=== PATIENT | female | born 1980 | race Caucasian/White ===

== ENCOUNTER → 2021-09-06 | Outpatient (CLI) | payer OTHER ==
[~2021-09-06] MED LIST: ANUS2.5C2 TOP; COLA50CA3 PO; GLYB2.5T PO; GLYBPOW XX; IBUP80TA PO; MAPA500T17 PO
== END ==
LOC: M WHC 15:23
PROVIDERS: ATTEND Nurse Practitioner Primary Care
DX: Z12.31 Encounter for screening mammogram for malignant neoplasm of breast (principal)

== ENCOUNTER 2022-05-08 13:08 | Observation (INO) | payer OTHER ==
[~2022-05-08] VITALS: Ht 170.2 cm; Wt 91.1 kg
[~2022-05-08 13:08] MED LIST changes: +CYMB1CAP5 PO; +HEPARIN SOD (PORCINE) 5000UNITS/ML 1ML VIAL/SYRINGE SQ ONE; +PHEN37.58 PO; +TIZA1TAB12 PO; +TOPA100T12 PO; +ceFAZolin SOD 2 GM in IV 1 EA IV ONE
[2022-05-08] MEDS ORDERED: IRON65TA2 PO (13:43)
[2022-05-08] MEDS ORDERED: VITA500C24 PO (13:43)
[2022-05-08] MEDS ORDERED: propofoL 200 MG/20 ML VIAL As Ordered ONE (13:56)
[2022-05-08] MEDS ORDERED: HYDROmorphone HCL 2MG/ML 1ML VIAL As Ordered ONE (13:56)
[2022-05-08] MEDS ORDERED: ROCURONIUM BROMIDE 50MG/5ML VIAL As Ordered ONE ×2 (13:56→17:12)
[2022-05-08] MEDS ORDERED: fentaNYL 100 MCG/2 ML INJECTION As Ordered ONE (13:56)
[2022-05-08] MEDS ORDERED: MIDAZOLAM INJ 2MG/2ML VIAL As Ordered ONE (13:56)
[2022-05-08] MEDS ORDERED: LIDOCAINE 2% 100MG/5ML SDV (FOR ANES.) As Ordered ONE (13:57)
[2022-05-08] MEDS ORDERED: ONDANSETRON 4MG 2ML VIAL As Ordered ONE (13:57)
[2022-05-08] MEDS ORDERED: SUGAMMADEX SODIUM 500 MG/5 ML VIAL (BRIDION) As Ordered ONE (13:57)
[2022-05-08] MEDS ORDERED: ACETAMINOPHEN 1000MG 100ML IV BAG As Ordered ONE (14:01)
[2022-05-08] MEDS ORDERED: LR 1,000 ML IV SCH ×2 (14:05→19:15)
[2022-05-08] MEDS ORDERED: BUPIVACAINE HCL 0.25% 10ML VIAL As Ordered ONE (14:34)
[2022-05-08] MEDS ORDERED: GENTAMICIN SULF 80MG/2ML VIAL As Ordered ONE (14:35)
[2022-05-08] MEDS ORDERED: BUPIVACAINE LIPOSOME/PF 1.3% 20ML VIAL (13.3MG/ML)(EXPAREL) As Ordered ONE (14:35)
[2022-05-08] MEDS ORDERED: ePHEDrine SULFATE 25 MG/5 ML(5MG/ML) SYRINGE As Ordered ONE (17:51)
[2022-05-08] MEDS ORDERED: METOCLOPRAMIDE INJ 10MG/2ML VIAL IV PRN (19:15)
[2022-05-08] MEDS ORDERED: ONDANSETRON 4MG 2ML VIAL IV PRN ×2 (19:15→19:55)
[2022-05-08] MEDS ORDERED: fentaNYL 100 MCG/2 ML INJECTION IV PRN (19:15)
[2022-05-08] MEDS ORDERED: oxyCODONE 5MG TAB PO PRN (19:15)
[2022-05-08] MEDS ORDERED: HYDROMORPHONE HCL 0.5 MG/ 0.5 ML SYRINGE IV PRN (19:15)
[2022-05-08] MEDS ORDERED: PERCOCET 5MG/325MG TAB PO PRN (19:55)
[2022-05-08 21:25] VITALS: BP 109/74
[2022-05-08 21:40] VITALS: BP 114/75
[2022-05-08 22:12] VITALS: BP 115/75
[2022-05-08] MEDS: TOPIRAMATE (TopAMAX) 100 MG TAB PO SCH (22:31)
[2022-05-08] MEDS: LR 1,000 ML IV SCH (22:32)
[2022-05-08] MEDS: traMADol 50 MG TAB PO PRN (22:41)
[2022-05-08 22:59] VITALS: BP 117/79
[2022-05-09] VITALS (7 sets, daily range): BP systolic 107–132; BP diastolic 62–84
[2022-05-09] MEDS: ceFAZolin SOD 1 GM in D5W MINI-BAG PLUS 50 ML IV SCH ×2 (00:26→07:59)
[2022-05-09] MEDS: LR 1,000 ML IV SCH ×2 (03:55→11:40)
[2022-05-09 06:43] LABS: BASO % 0.1 % (0.0-1.0); HEMATOCRIT 33.3 % (36.0-47.0); LYMPH # 1.1 10^3/uL (1.5-5.0); LYMPH % 8.3 % (24.0-44.0); MEAN CORPUSCULAR HEMOGLOBIN 30.1 pg (27.0-33.0); MONO # 0.8 10^3/uL (0.0-0.8); NEUTROPHILS # 11.4 10^3/uL (1.5-8.5); NEUTROPHILS % 85.3 % (36.0-66.0); PLATELET COUNT, AUTOMATED 214 10^3/uL (150-450); RED BLOOD COUNT 3.66 10^6/uL (4.00-5.40); WHITE BLOOD COUNT 13.4 10^3/uL (4.0-10.0)
[2022-05-09] MEDS: ACETAMINOPHEN TAB 650MG DOSE (2X325MG) PO PRN ×2 (07:59→14:11)
[2022-05-09] MEDS ORDERED: DULoxetine 30MG CAPSULE (CYMBALTA) PO SCH (09:00)
[2022-05-09] MEDS: TOPIRAMATE (TopAMAX) 100 MG TAB PO SCH (10:07)
[2022-05-09] MEDS: traMADol 50 MG TAB PO PRN (10:08)
[2022-05-09] MEDS ORDERED: TRAM50TA2 PO (15:05)
== END 2022-05-09 17:20 | disposition home or self-care (01) ==
LOC: M SDC 13:08 → M ED INP 13:09 → UNDOADMOB 13:09 → M MS5PR 13:09 → M ED INP 19:53 → UNDOADMOB 19:53 → M MS5PR 21:05 → M ED INP 21:05 → UNDODISOB 05-09 17:20
PROVIDERS: ADMIT Plastic Surgery Surgery of the Hand; ATTEND Plastic Surgery Surgery of the Hand
DX: M54.07 Panniculitis affecting regions of neck and back, lumbosacral region (principal); Z91.040 Latex allergy status; Z91.011 Allergy to milk products; F41.9 Anxiety disorder, unspecified; M79.7 Fibromyalgia; M54.2 Cervicalgia
CPT/HCPCS: 15830; 15847; 36415; 81025; 85025; 88300; 96365; 96366; C9290; J0131; J0690; J1100; J1170; J1580; J2250; J2405; J3010; S0020

== ENCOUNTER 2022-10-13 09:12 | Emergency (ER) | payer OTHER ==
[~2022-10-13] VITALS: Ht 170.2 cm; Wt 104.8 kg
[~2022-10-13 09:12] MED LIST changes: -HEPARIN SOD (PORCINE) 5000UNITS/ML 1ML VIAL/SYRINGE SQ ONE; +IRON65TA2 PO; +TRAM50TA2 PO; +VITA500C24 PO; -ceFAZolin SOD 2 GM in IV 1 EA IV ONE
[2022-10-13] MEDS ORDERED: KETOROLAC 30 MG/ML 1ML VIAL IV ONE (09:50)
[2022-10-13] MEDS ORDERED: ACETAMINOPHEN 500 MG TAB PO ONE (09:50)
[2022-10-13] MEDS ORDERED: LIDOCAINE 5% (LIDODERM) PATCH TD ONE (09:50)
[2022-10-13 10:57] VITALS: O2SAT 96
[2022-10-13] MEDS ORDERED: KETO10TAB PO (10:57)
[2022-10-13] MEDS ORDERED: LIDO5DIS41 TD (10:57)
[2022-10-13 11:05] VITALS: BP 127/80; TEMP 97.7
== END 2022-10-13 11:12 | disposition home or self-care (01) ==
LOC: M ED 09:12
DX: M54.50 Low back pain, unspecified (principal); Z91.011 Allergy to milk products; Z91.040 Latex allergy status; Z79.891 Long term (current) use of opiate analgesic; Z79.899 Other long term (current) drug therapy
CPT/HCPCS: 96374; 99284; J1885

== ENCOUNTER 2023-03-23 20:05 | Emergency (ER) | payer OTHER ==
[~2023-03-23] VITALS: Ht 170.2 cm; Wt 110.0 kg
[~2023-03-23 20:05] MED LIST changes: +KETO10TAB PO; +LIDO5DIS41 TD
[2023-03-23 20:06] VITALS: BP 137/86; TEMP 98.1; O2SAT 98
[2023-03-23] MEDS ORDERED: METOCLOPRAMIDE INJ 10MG/2ML VIAL IV ONE (21:15)
[2023-03-23] MEDS ORDERED: KETOROLAC 30 MG/ML 1ML VIAL IV ONE (21:15)
[2023-03-23] MEDS ORDERED: NS 1,000 ML IV ONE (21:15)
[2023-03-23] MEDS ORDERED: diphenhydrAMINE 50MG/ML VIAL IV ONE (21:15)
[2023-03-23] MEDS ORDERED: KETO10TAB PO (22:51)
[2023-03-23] MEDS ORDERED: REGL10TA6 PO (22:51)
== END 2023-03-23 23:04 | disposition home or self-care (01) ==
LOC: M ED 20:05
DX: G43.909 Migraine, unspecified, not intractable, without status migrainosus (principal); G40.909 Epilepsy, unspecified, not intractable, without status epilepticus; Z91.011 Allergy to milk products; Z91.040 Latex allergy status; Z79.891 Long term (current) use of opiate analgesic; Z79.811 Long term (current) use of aromatase inhibitors; Z79.899 Other long term (current) drug therapy
CPT/HCPCS: 70450; 96361; 96374; 96375; 99282; J1200; J1885; J2765